=== PATIENT | female | born 1990 | race Caucasian/White ===

== ENCOUNTER → 2017-05-28 | Outpatient (CLI) | payer OTHER ==
--- NOTE | 2017-05-28 10:14 | DIAGNOSTIC IMAGING REPORT ---
LUMBAR SPINE MIN 4 VIEWS CLINICAL HISTORY: 26 years-old Female presenting with BACK PAIN. TECHNIQUE: Frontal, bilateral oblique, lateral, and coned in lateral views of the lumbar spine were obtained. COMPARISON: None. FINDINGS: Slight straightening of normal lumbar lordosis likely positional. No scoliosis. No radiographic evidence of compression fracture or subluxation. Vertebral body heights and intervertebral disc spaces preserved. No radiographic evidence of osseous neural foraminal narrowing. No pars defect. Sacroiliac joints grossly normal. IMPRESSION: Normal lumbar spine. Electronically signed by: Kevin Kent M.D. 05/28/2017 10:13 AM Dictated Date/Time: 05/28/2017 10:11 AM
== END | disposition home or self-care (01) ==
LOC: C.RDSM 19:21
PROVIDERS: ATTEND Internal Medicine
DX: M54.5 Low back pain (principal)

== ENCOUNTER → 2017-06-23 | Outpatient (CLI) | payer OTHER | END | disposition home or self-care (01) | LOC: C.LAB 09:21 | PROVIDERS: ATTEND Nurse Practitioner Adult Health | DX: Z00.00 Encounter for general adult medical examination without abnormal findings (principal); N91.2 Amenorrhea, unspecified ==

== ENCOUNTER → 2017-06-29 | Outpatient (CLI) | payer OTHER | END | disposition home or self-care (01) | LOC: C.PAPS 18:17 | PROVIDERS: ATTEND Physician Assistant | DX: Z01.419 Encounter for gynecological examination (general) (routine) without abnormal findings (principal) ==